=== PATIENT | male | born 1955 | race Caucasian/White ===

== ENCOUNTER 2020-10-26 09:06 | Inpatient (IN) | payer BC ==
[~2020-10-26] VITALS: Ht 180.3 cm; Wt 97.3 kg
[2020-10-26 09:47] LABS: HEMOGLOBIN 14.6 gm/dl (14.0-17.5); RED BLOOD COUNT 4.61 M/UL (4.20-5.50); WHITE BLOOD COUNT 12.5 K/UL (4.5-11.0)
[2020-10-26 11:33] LABS: BUN/CREATININE RATIO 17 (0-10)
[2020-10-26] MEDS ORDERED: NORVASC5 MG PO (13:16)
[2020-10-26] MEDS ORDERED: PLAVIX75 MG PO (13:17)
[2020-10-26] MEDS ORDERED: PROTONIX40 MG PO (13:17)
[2020-10-26] MEDS ORDERED: LIPITOR10 MG PO (13:17)
[2020-10-26] MEDS ORDERED: TOPROL XL100 MG PO (13:17)
[2020-10-26] MEDS ORDERED: ALDACTONE 25MG25 MG PO (13:18)
[2020-10-27 00:48] LABS: HEMOGLOBIN 13.1 gm/dl (14.0-17.5); WHITE BLOOD COUNT 14.7 K/UL (4.5-11.0)
[2020-10-27 00:51] LABS: RED BLOOD COUNT 4.13 M/UL (4.20-5.50)
[2020-10-27 01:10] LABS: BUN/CREATININE RATIO 16 (0-10)
[2020-10-27 12:21] LABS: CORONAVIRUS HKU1 Not Detected (Not Detectd); CORONAVIRUS NL63 Not Detected (Not Detectd); CORONAVIRUS OC43 Not Detected (Not Detectd); CORONOAVIRUS 229E Not Detected (Not Detectd); HUMAN METAPNEUMOVIRUS Not Detected (Not Detectd); HUMAN RHINOVIRUS/ENTEROVIRUS Not Detected (Not Detectd); INFLUENZA A Not Detected (Not Detectd); INFLUENZA B Not Detected (Not Detectd)
[2020-10-27 12:22] LABS: BORDETELLA PARAPERTUSSIS Not Detected (Not Detectd); BORDETELLA PERTUSSIS Not Detected (Not Detectd); CHLAMYDIA PNEUMONIAE Not Detected (Not Detectd); MYCOPLASMA PNEUMONIAE Not Detected (Not Detectd); PARAINFLUENZA VIRUS 1 Not Detected (Not Detectd); PARAINFLUENZA VIRUS 2 Not Detected (Not Detectd); PARAINFLUENZA VIRUS 3 Not Detected (Not Detectd); PARAINFLUENZA VIRUS 4 Not Detected (Not Detectd); RESPIRATORY SYNCYTIAL VIRUS Not Detected (Not Detectd)
[2020-10-27 14:07] LABS: SARS-CoV-2 NOT DETECTED (Not Detectd)
[2020-10-28 13:46] LABS: BODY FLUID SOURCE PLEURAL
[2020-10-28 13:56] LABS: MONONUCLEAR CELLS 6.5 (75-100); POLYMORPHONUCLEAR % 93.5 (0-25); RBC (AUTOMATED) 11200 (0-100000); WBC (AUTOMATED) 16183 (0-500)
[2020-10-28 14:12] LABS: TOTAL PROTEIN, BODY FLUID 4.6 gm/dL
[2020-10-28 14:13] LABS: LDH, BODY FLUID 1703 U/L
[2020-10-29 05:40] LABS: BUN/CREATININE RATIO 12 (0-10)
[2020-10-30 04:22] LABS: BUN/CREATININE RATIO 11 (0-10)
[2020-10-31 03:45] LABS: RED BLOOD COUNT 3.91 M/UL (4.20-5.50); WHITE BLOOD COUNT 10.1 K/UL (4.5-11.0)
[2020-10-31 04:16] LABS: BUN/CREATININE RATIO 7 (0-10)
[2020-11-01 05:11] LABS: BUN/CREATININE RATIO 7 (0-10)
[2020-11-01 11:13] LABS: RED BLOOD COUNT 3.86 M/UL (4.20-5.50)
--- NOTE | 2020-11-01 13:31 | NUR ---
[employer]ON INFORMED THAT PATIENT DOES NOT WANT PICC LINE
--- NOTE | 2020-11-01 17:12 | NUR ---
PATIENT HAS REFUSED A PICC LINE TO RECIEVE HOME ANTI BIOTICS. HE HAS CHOSEN TO TRANSFER TO [facility] FOR FURTHER CARE. PATIENT AND HIS HAVE BEEN INFORMED THAT DR. SIERRA HAS MADE ARRANGEMENTS FOR AN ACCEPTING PHYSICIAN IN [place]. PATIENT AND HIS HAS BEEN INFORMED THAT DR. LAITH OQUENDO HAS ACCEPTED MR DELGADILLO A PATIENT AND IS WAITING ON A BED FOR MR. DELGADILLO.
[2020-11-02 03:10] LABS: HEMOGLOBIN 12.4 gm/dl (14.0-17.5); RED BLOOD COUNT 3.99 M/UL (4.20-5.50); WHITE BLOOD COUNT 10.9 K/UL (4.5-11.0)
[2020-11-02 03:37] LABS: BUN/CREATININE RATIO 9 (0-10)
[2020-11-03 07:00] LABS: HEMOGLOBIN 12.6 gm/dl (14.0-17.5); RED BLOOD COUNT 4.09 M/UL (4.20-5.50); WHITE BLOOD COUNT 9.8 K/UL (4.5-11.0)
[2020-11-03 07:22] LABS: BUN/CREATININE RATIO 11 (0-10)
[2020-11-04 06:41] LABS: HEMOGLOBIN 12.9 gm/dl (14.0-17.5); RED BLOOD COUNT 4.24 M/UL (4.20-5.50); WHITE BLOOD COUNT 10.2 K/UL (4.5-11.0)
[2020-11-04 07:13] LABS: BUN/CREATININE RATIO 13 (0-10)
[2020-11-06] MEDS ORDERED: IPRAT-ALBUT 0.5-3 ML NEB (08:55)
[2020-11-06] MEDS ORDERED: INVANZ 1 GM VIAL1 GM IV ×3 (08:55→12:15)
== END 2020-11-06 12:29 | disposition home or self-care (01) | DRG 193 ==
LOC: ER1 09:06 → MED SURG 4 12:44 → CDU 12:44 → MED SURG 4 17:54
PROVIDERS: Internal Medicine; Physician Assistant; ADMIT Internal Medicine
PROC: 0W9930Z Drainage of Right Pleural Cavity with Drainage Device, Percutaneous Approach (ICD-10-PCS; principal; 2020-10-28)
DX: J18.1 Lobar pneumonia, unspecified organism (principal); J96.01 Acute respiratory failure with hypoxia; J98.11 Atelectasis; J91.8 Pleural effusion in other conditions classified elsewhere; E87.2 Acidosis; Z20.822 Contact with and (suspected) exposure to COVID-19; D47.3 Essential (hemorrhagic) thrombocythemia; J98.4 Other disorders of lung; I71.2 Thoracic aortic aneurysm, without rupture; D72.829 Elevated white blood cell count, unspecified; R91.8 Other nonspecific abnormal finding of lung field; R09.1 Pleurisy; I10 Essential (primary) hypertension; E78.5 Hyperlipidemia, unspecified; R13.10 Dysphagia, unspecified; Z79.01 Long term (current) use of anticoagulants; Z79.899 Other long term (current) drug therapy; K76.0 Fatty (change of) liver, not elsewhere classified; D64.9 Anemia, unspecified
CPT/HCPCS: ECHO; 36415; 36600; 71045; 71046; 71250; 80048; 80053; 80202; 82150; 82550; 82553; 82803; 82945; 82977; 83605; 83615; 83690; 83735; 83874; 83880; 83986; 84157; 84484; 85025; 85027; 85610; 85652; 86140; 87040; 87070; 87081; 87205; 87633; 89051; 92610; 93306; 94640; 94664; 94760; 96365; 96366; 96367; 96375; 96376; 99285; C1729; J1335; J1650; J1885; J1940; J2270; J2405; J2543; J2997; J3370; J7030; J7070; Q9967; U0002

== ENCOUNTER 2022-01-08 18:53 | Emergency (ER) | payer OTHER ==
[~2022-01-08 18:53] MED LIST: ALDACTONE 25MG25 MG PO; INVANZ 1 GM VIAL1 GM IV; IPRAT-ALBUT 0.5-3 ML NEB; LIPITOR10 MG PO; NORVASC5 MG PO; PLAVIX75 MG PO; PROTONIX40 MG PO; TOPROL XL100 MG PO
[2022-01-08 20:02] LABS: HEMOGLOBIN 14.6 gm/dl (14.0-17.5); RED BLOOD COUNT 4.58 M/UL (4.20-5.50); WHITE BLOOD COUNT 9.4 K/UL (4.5-11.0)
[2022-01-08] MEDS ORDERED: CEPHALEXIN500 MG PO (23:53)
[2022-01-08] MEDS ORDERED: BACTRIM DS TAB1 EACH PO (23:53)
== END 2022-01-09 00:05 | disposition home or self-care (01) ==
LOC: ER1 18:53
PROVIDERS: Emergency Medicine
DX: M71.121 Other infective bursitis, right elbow (principal); I10 Essential (primary) hypertension
CPT/HCPCS: 73080; 80053; 85025; 85652; 86140; 87040; 99283; J0696

== ENCOUNTER 2022-03-07 14:30 | Observation (INO) | payer OTHER ==
[~2022-03-07] VITALS: Ht 180.3 cm; Wt 93.9 kg
[~2022-03-07 14:30] MED LIST changes: +BACTRIM DS TAB1 EACH PO; +CEPHALEXIN500 MG PO
[2022-03-07 15:20] LABS: HEMOGLOBIN 16.1 gm/dl (14.0-17.5); RED BLOOD COUNT 4.98 M/UL (4.20-5.50); WHITE BLOOD COUNT 18.8 K/UL (4.5-11.0)
[2022-03-07 16:00] LABS: BUN/CREATININE RATIO 13 (0-10)
[2022-03-08 04:34] LABS: HEMOGLOBIN 13.4 gm/dl (14.0-17.5); RED BLOOD COUNT 4.17 M/UL (4.20-5.50); WHITE BLOOD COUNT 10.7 K/UL (4.5-11.0)
[2022-03-08 04:55] LABS: BUN/CREATININE RATIO 16 (0-10)
[2022-03-09 06:52] LABS: HEMOGLOBIN 14.4 gm/dl (14.0-17.5); RED BLOOD COUNT 4.48 M/UL (4.20-5.50); WHITE BLOOD COUNT 8.2 K/UL (4.5-11.0)
[2022-03-09] MEDS ORDERED: ASPIRIN EC81 MG PO (17:38)
[2022-03-09] MEDS ORDERED: NITROGLYCERIN0.4 MG SL (17:38)
[2022-03-09] MEDS ORDERED: AMOX TR-K CLV1 EAC4 PO (17:38)
[2022-03-09] MEDS ORDERED: CALCIUM500 M1 PO (17:38)
[2022-03-09] MEDS ORDERED: DOXYCYCLINE HY100 M2 PO (17:38)
[2022-03-09] MEDS ORDERED: DIFLUCAN100 MG PO (17:38)
== END 2022-03-09 18:39 | disposition home or self-care (01) ==
LOC: ER1 14:30 → CDU 17:29 → MED SURG 4 19:38
PROVIDERS: Physician Assistant; Physician Assistant Medical; ADMIT Internal Medicine
DX: R07.89 Other chest pain (principal); I71.4 Abdominal aortic aneurysm, without rupture; I10 Essential (primary) hypertension; E78.5 Hyperlipidemia, unspecified; R91.1 Solitary pulmonary nodule; N17.9 Acute kidney failure, unspecified; K21.9 Gastro-esophageal reflux disease without esophagitis; R06.02 Shortness of breath; R13.10 Dysphagia, unspecified; D72.829 Elevated white blood cell count, unspecified; I77.79 Dissection of other specified artery; I77.73 Dissection of renal artery; Z79.02 Long term (current) use of antithrombotics/antiplatelets
CPT/HCPCS: ECHO; 0240U; 36415; 71045; 71046; 78452; 80048; 80053; 82550; 82553; 82565; 83690; 83735; 83880; 84484; 85025; 85027; 85379; 86140; 87040; 93005; 93017; 93306; 96374; 96375; 96376; 99285; A9502; C9113; G0378; J0696; J1650; J2785